=== PATIENT | female | born 1935 | race Caucasian/White ===

== ENCOUNTER → 2020-05-07 13:48 | Outpatient (CLI) | payer OTHER, SELFPAY ==
[2020-05-10 07:44] LABS: COVID19 Sendout Not Detected (Not Detect)
== END ==
PROVIDERS: Referring Provider Physician Assistant; Visit Provider Physician Assistant
DX: Z11.59 Encounter for screening for other viral diseases (principal)
CPT/HCPCS: 87635

== ENCOUNTER → 2020-05-10 13:25 | Outpatient (CLI) | payer OTHER, SELFPAY ==
--- NOTE | 2020-05-10 | DI.ECHO.S_ITS ---
[place] [facility]---------+ [facility] +---------+ : : [address] : [address] : : : : [id number] : : : : Phone: [phone]+ Echocardiogram Report + + :Name: ADORE SCOTT Study Date: 05/10/2020 Height: 64 in : :[facility] Weight: 217 lb : : Gender: Female BSA: 2.0 m2 : :: 1935 Age: 84 yrs BP: 182/93 mmHg: :Reason For Study: HYPERTENSION, CHEST PAIN : :Ordering Physician: Dr. De Los Santos : :[place] Performed By: Shelia Burden : :Referring: FILIBERTO CANALES : + + Interpretation Summary The left ventricle is normal in size. Left ventricular systolic function appears normal without focal wall motion abnormalities. The ejection fraction is estimated to be 55-60%. Diastolic parameters suggest a relaxation abnormality of the left ventricle, consistent with probable normal filling pressures. The right ventricle is not well visualized. The right ventricle is grossly normal size. The right ventricular systolic function is normal. Pulmonary artery pressures cannot be estimated because of the lack of a measurable TR jet velocity. The left atrium grossly appears normal in size. Right atrium not well visualized secondary to technical limitations. The right atrium grossly appears normal in size. There is no significant valvular heart disease. The aortic root is normal size. Procedure: A two-dimensional transthoracic echocardiogram with color flow and Doppler was performed. The study quality was technically difficult. There is no prior echocardiogram noted for this patient. The heart rate ranged between 91-103 bpm during the study. Left Ventricle: The left ventricle is normal in size. There is mild concentric left ventricular hypertrophy. Left ventricular systolic function appears normal without focal wall motion abnormalities. The ejection fraction is estimated to be 55-60%. Diastolic parameters suggest a relaxation abnormality of the left ventricle, consistent with probable normal filling pressures. Right Ventricle: The right ventricle is not well visualized. The right ventricle is grossly normal size. The right ventricular systolic function is normal. Atria: The left atrium grossly appears normal in size. Right atrium not well visualized secondary to technical limitations. The right atrium grossly appears normal in size. There is no Doppler evidence for an interatrial shunt. Mitral Valve: The mitral valve leaflets appear mildly thickened, but open well. There is trace mitral regurgitation. Aortic Valve: The aortic valve is trileaflet. The aortic valve opens well. There is no aortic valve stenosis. No aortic regurgitation is present. Tricuspid Valve: The tricuspid valve is not well visualized. Pulmonary artery pressures cannot be estimated because of the lack of a measurable TR jet velocity. No tricuspid regurgitation. Pulmonic Valve: The pulmonic valve is not well seen, but is grossly normal. There is no pulmonic valvular regurgitation. There is no significant valvular heart disease. Great Vessels: The aortic root is normal size. The dimensions of the ascending aorta are normal. The inferior vena cava was not well visualized. Pericardium/ Pleura There is no pericardial effusion. There is an anterior echo-free space consistent with a fat pad. There is no pleural effusion. MMode/2D Measurements & Calculations LVIDd: 4.2 cm LVOT diam: 2.0 cm LVIDs: 2.9 cm Ao root diam: 3.1 cm FS: 31.2 % asc Aorta Diam: 3.2 cm IVSd: 1.2 cm Ao Arch Diam (Prox Trans): 3.0 cm LVPWd: 1.1 cm LV couch. diameter/BSA (cm/m^2): 2.1 LV sys. diameter/BSA (cm/m^2): 1.4 LA A2 area: 15.5 cm2 TAPSE: 2.0 cm LA A4 area: 12.6 cm2 LA length (vol): 4.4 cm LA vol: 37.5 ml LA vol index: 18.5 ml/m2 Doppler Measurements & Calculations Ao V2 max: 123.5 cm/sec LVOT Max Raz: 110.7 cm/sec Ao V2 mean: 86.3 cm/sec LV V1 max P.9 mmHg Ao max P.1 mmHg LV V1 VTI: 19.5 cm Ao mean P.3 mmHg MODESTO(I,D): 2.7 cm2 Ao V2 VTI: 21.7 cm MODESTO(V,D): 2.7 cm2 sev ratio: 0.90 MODESTO indexed to BSA (cm^2/m^2): 1.4 MV E max raz: 79.5 cm/sec PA V2 max: 94.9 cm/sec MV A max raz: 108.2 cm/sec PA V2 mean: 53.8 cm/sec MV E/A: 0.74 PA mean P.5 mmHg Med Peak E' Raz: 5.5 cm/sec PA Accel Time: 0.09 sec E/E' med: 14.3 Lat Peak E' Raz: 8.1 cm/sec E/E' lat: 9.8 E/e' average: 12.1 MV dec time: 0.24 sec SV(LVOT): 59.3 ml Reading Physician:10:06 AM
--- NOTE | 2020-05-10 | DI.US.S_ITS ---
PROCEDURE: US CAROTID DOPPLER BI INDICATIONS: STENOSIS OF CAROTIDS CHEST PAIN HYPERTENSION TECHNIQUE: Color and pulse Doppler interrogation was performed of both carotid systems, with image documentation and velocity measurements. COMPARISON: None. FINDINGS: Stenosis calculations are based on SRU (Society of Radiologists in Ultrasound) criteria. Right side: Brachial blood pressure: 154/81 mm Hg. Common carotid artery peak systolic velocity: 98 cm/sec. Internal carotid artery peak systolic velocity: 72 cm/sec. Internal carotid artery end diastolic velocity: 18 cm/sec. External carotid artery peak systolic velocity: 144 cm/sec. ICA/CCA peak systolic ratio: 0.7. Pak scale imaging description: Mild plaque Percent internal carotid artery stenosis: Less than 50 percent stenosis. Vertebral artery: Flow direction is antegrade. Left side: Brachial blood pressure: 163/82 mm Hg. Common carotid artery peak systolic velocity: 98 cm/sec. Internal carotid artery peak systolic velocity: 88 cm/sec. Internal carotid artery end diastolic velocity: 19 cm/sec. External carotid artery peak systolic velocity: 121 cm/sec. ICA/CCA peak systolic ratio: 0.9 . Pak scale imaging description: Mild plaque Percent internal carotid artery stenosis: Less than 50 percent stenosis. Vertebral artery: Flow direction is antegrade. IMPRESSION: Less than 50 percent stenosis in the bilateral ICA. Dictated by: Tereso Colunga M.D. on 05/10/2020 at 15:28 Approved by: Tereso Colunga M.D. on 05/10/2020 at 15:31
--- NOTE | 2020-05-14 13:11 | DI.NM.S_ITS ---
PROCEDURE PERFORMED: Pharmacologic vasodilator stress and rest myocardial perfusion imaging with gating to assess ejection fraction and regional wall motion. DATE OF STUDY: 05/10/2020 ORDERING PROVIDER: Filiberto Canales Jr MD INDICATIONS: The patient is an 84-year-old female with vascular disease and atypical chest pain. PHARMCOLOGIC STRESS: Per protocol, 0.4 mg of regadenoson was infused with a normal hemodynamic response. She developed mild dyspnea but no chest discomfort. Her resting ECG shows sinus rhythm with fairly normal ST segments, and there are no significant ST-segment shifts or arrhythmias with stress. No aminophylline was required. Per protocol, 24.8 millicuries of technetium-99m Myoview was injected. The patient was imaged 20 minutes later using a gated SPECT acquisition protocol. She returned the following day and was reinjected with an additional 26.6 millicuries of technetium-99m Myoview and was imaged 30 minutes later, again using a gated SPECT acquisition protocol. FINDINGS: RAW DATA: There is fair myocardial tracer uptake although there is an area of increased uptake noted in the lower lateral chest or left upper quadrant of the abdomen that traverses across the inferior wall, likely producing attenuation artifact. This does not appear to be related to the spleen. The lung/heart ratio was normal at 0.38 with a normal TID ratio of 0.63. QUANTITATED GATED SPECT: Post-stress ejection fraction is estimated at 95%, likely an overestimate because of small left ventricular volumes. There are no focal wall motion abnormalities, and specifically the inferolateral wall appears to have brisk contractility. The resting ejection fraction is 91%, also likely an overestimate, with an end-diastolic volume of 64 mL. MYOCARDIAL PERFUSION SCAN: Post-stress supine images show a subtle defect in the mid and distal inferolateral wall but sparing the inferior wall proper. There are no prone images available as the patient was unable to lay prone. The resting images show an identical perfusion pattern althought with a slightly more prominent defect in this area, but there are no areas of improvement. IMPRESSION: 1. Probable normal myocardial perfusion study. 2. Subtle fixed inferolateral defect that likely reflects attenuation artifact. There is no compelling evidence for myocardial ischemia or previous myocardial infarction. 3. High normal left ventricular systolic function without any focal wall motion abnormality. 4. Vague area of increased tracer uptake noted lateral and anterior to the inferior wall of the left ventricle of uncertain etiology. Technetium can be taken up by hypermetabolic tissue and clinical correlation is recommended. 5. No angina or ECG evidence of ischemia with pharmacologic vasodilator stress. Mariola Connor - MARLEN/kendra/desiree doc#: [id number]/job#: [id number] dd: 05/11/2020 12:52:00 dt: 05/11/2020 13:18:00 DICTATING MD/COPIES TO: Johnny Gonzalez MD COPIES MNE: TYRESE;
== END ==
PROVIDERS: PCP Internal Medicine; Referring Provider Internal Medicine; Visit Provider Internal Medicine Cardiovascular Disease
DX: I65.23 Occlusion and stenosis of bilateral carotid arteries (principal); R07.89 Other chest pain; I10 Essential (primary) hypertension
CPT/HCPCS: 78452; 93017; 93306; 93880; A9502; J2785

== ENCOUNTER → 2021-03-25 14:07 | Outpatient (CLI) | payer OTHER, SELFPAY ==
--- NOTE | 2021-03-25 | DI.MRI.S_ITS ---
PROCEDURE: MR HEAD/BRAIN WO/W CON INDICATIONS: VERTIGO TECHNIQUE: Noncontrast axial T1 spin echo, axial T2 fast spin echo, sagittal and axial FLAIR, coronal T2 fast spin echo, axial gradient echo, axial diffusion and ADC through the brain. After the administration of contrast, axial and coronal T1 spin echo with fat saturation through the brain. COMPARISON: None. FINDINGS: Image quality: Motion is present on multiple sequences, limiting areas of fine detail evaluation. CSF spaces: Basal cisterns are patent. No extra-axial fluid collections. Ventricles are normal in size and shape. Brain: No midline shift. No intracranial bleeds or masses. No abnormal intracranial enhancement. There is cerebral volume loss for age. There is periventricular white matter chronic small vessel ischemic change. The brainstem appears normal. Diffusion-weighted images demonstrate no acute ischemic insults. No chronic ischemic insults. Normal intravascular flow voids are present. Skull and face: Calvarial marrow is normal in signal. Orbits appear normal. Sinuses: Sinuses appear clear. Scattered fluid is present within the mastoid air cells bilaterally, left greater than right. IMPRESSION: 1. No acute intracranial process. 2. Moderate atrophy and chronic microvascular ischemic changes. Dictated by: Chata Anne M.D. on 03/25/2021 at 16:21 Approved by: Chata Anne M.D. on 03/25/2021 at 16:23
== END ==
PROVIDERS: PCP Internal Medicine; Referring Provider Internal Medicine; Visit Provider Internal Medicine
DX: H81.4 Vertigo of central origin (principal); G31.9 Degenerative disease of nervous system, unspecified
CPT/HCPCS: 70553